=== PATIENT | female | born 1990 | race Caucasian/White ===

== ENCOUNTER 2016-09-07 06:02 | Inpatient (IN) | payer BC ==
[2016-09-07] VITALS (10 sets, daily range): BP systolic 105–136; BP diastolic 62–80; PULSE 81–100; RESP 16–20; TEMP 97.5–98.3; O2SAT 89–100
[~2016-09-07] VITALS: Ht 160 cm; Wt 101.8 kg
[~2016-09-07 06:02] MED LIST: ACET-2723 PO; DOCO100C3; GING550C4; PREN1TAB73 PO
[2016-09-07] MEDS ORDERED: LIDOCAINE 1% (10mg/ml) 2ml SDV ID PRN (06:45)
[2016-09-07] MEDS ORDERED: CALCIUM CARBONATE 500mg Chewable TAB PO PRN ×2 (06:45→13:15)
[2016-09-07] MEDS ORDERED: ACETAMINOPHEN 500 MG TABLET PO PRN ×2 (06:45→13:15)
[2016-09-07] MEDS ORDERED: MAG-AL + SIM LIQUID 30 ML UDC PO PRN (06:45)
[2016-09-07] MEDS: LR 1,000 ML IV PRN ×3 (06:55→10:22)
[2016-09-07 07:03] LABS: HCT - HEMATOCRIT 38.9 % (36-46); HGB - HEMOGLOBIN 13.6 GM/DL (12-16); MEAN CORPUSCULAR VOLUME 85.7 UM3 (80-100); MEAN PLATELET VOLUME 12.3 UM3 (9.4-12.4); RED BLOOD COUNT 4.54 M/MM3 (4.00-5.20); WBC - WHITE BLOOD COUNT 9.9 T/MM3 (4.5-11.0)
[2016-09-07] MEDS ORDERED: OXYTOCIN 30 UNIT in D5LR 500 ML PRN (07:15)
[2016-09-07] MEDS ORDERED: D5LR 1,000 ML IV PRN (07:15)
[2016-09-07] MEDS ORDERED: FOLI0.4T2 PO (07:58)
[2016-09-07] MEDS ORDERED: AMOX-351 PO (07:58)
--- NOTE | 2016-09-07 09:51 | ANESOB ---
Epidural/ Date/Time DATE: 09/07/16 TIME: 904 Preop Diagnosis Procedure: Labor Epidural Plan: Epidural Height: 5 ' 3.00 " Weight: 101.800 kg BMI: kg/m2 P:0 Medications & Allergies Inpatient Medications Current Medications Medications (Trade) Dose Ordered Sig/Gris Start Time Stop Time Status Last Admin Dose Admin Lidocaine HCl 0.2 mg 0.2 mg PRN PRN 09/07/16 06:45 Lactated Ringer's (Lactated Ringers) 1,000 ml @ 0 mls/hr Q0M PRN 09/07/16 06:38 09/07/16 08:55 0 MLS/HR Acetaminophen (Tylenol Extra Strength) 1-2 TABS = 500-1,000 MG Q4H PRN 09/07/16 06:45 Al Hydroxide/Mg Hydroxide (Maalox) 30 ml Q4H PRN 09/07/16 06:45 Calcium Carbonate 1-2 TABS Q2H PRN 09/07/16 06:45 Dextrose/Lactated Ringer's 1,000 ml @ 0 mls/hr Q0M PRN 09/07/16 07:15 09/07/16 07:11 0 MLS/HR Oxytocin/Dextrose/ Lactated Ringer's (Pitocin/D5lr) 503 ml @ 0 mls/hr Q0M PRN 09/07/16 07:15 09/07/16 07:10 0 MLS/HR Acetaminophen (Tylenol Extra Strength) 500 Mg Tablet, 1-2 TAB PO Q6H PRN for PAIN/FEVER, (Reported) Last Taken: on 09/06/16 Amoxicillin/Potassium Clav (Augmentin 875-125 Tablet) 1 Each Tablet, 1 TAB PO BID, (Reported) TAKE WITH MEALS Folic Acid (Folic Acid) 0.4 Mg Tablet, 1 TAB PO DAILY, (Reported) Last Taken: on 09/07/16 0500 Gali Root (Gali Root) 550 Mg Capsule, ( Reported) Last Taken: on 09/07/16 0500 Pnv95/Ferrous Fumarate/FA ( Tablet) 1 Each Tablet, 1 TAB PO DAILY, (Reported) Last Taken: on 09/07/16 0500 Discontinued Medications Docosahexanoic Acid (Dha) 100 Mg Capsule, (Reported) Last Taken: on 09/06/16 Coded Allergies: No Known Allergies (Unverified , 09/07/16) Medical/Surgical History Anesthesia PMH: Denies: *Diabetes, Anesthesia Reactions, Malignant Hyperthermia Smoking Status: Never smoker Does patient use chewing tobac: No Second Hand Exposure: No Substance Use Type: does not use Alcohol Intake: none Last Drink: hours (ago) (4) Anesthesia Adverse Reactions: FOUND none Family Hx of Anesthesia Advers: none Hx of Motion Sickness: No Complications During : No Pertinent Findings Laboratory Tests 09/07/16 06:48 Physical Exam Respiratory: Lungs clear Cardiovascular: Regular rate, rhythm Airway Assessment Mallampati Score: II TMD: 3 Fingerbreadths Neck Extension: Good Overall Assessment: May Be Diff Mask Vent., May Be Diff Intubation ASA: 2 Discussion Discussed risks/options/alternatives of anesthesia. Patient consents. Nursing pain assessment noted. Present for Discussion: Present: Parent, Spouse Attestation Statement Prior to the delivery of any anesthetic medication, I examined the patient, developed the plan, obtained the patient's consent and discussed the risk and benefits of the procedure with the patient/guardian. If the note happens to be signed after anesthesia start time, it is only due to providing efficient care of the patient and documenting at a time when the computer is available. TOBI PORTER CRNA Sep 07, 2016 09:51
[2016-09-07] MEDS ORDERED: ROPIVACAINE 1% 200 MG, SUFENTANIL 50 MCG in NORMAL SALINE 80 ML EPI PRN (10:00)
[2016-09-07] MEDS ORDERED: NALOXONE 0.4mg/ml INJECTION IV PRN (10:00)
[2016-09-07] MEDS ORDERED: ONDANSETRON 4mg/2ml INJECTION IV PRN ×2 (10:00→13:15)
[2016-09-07] MEDS ORDERED: DiphenhydrAMINE 50 MG/ML INJECTION IV PRN (10:00)
[2016-09-07] MEDS ORDERED: CEFAZOLIN 2 GM in D5W 50ml 2 GM in D5W 50 ML IV ONE ×2 (11:00)
[2016-09-07] MEDS ORDERED: CITRIC ACID/SODIUM CITRATE 30 ML PO ONE (11:00)
[2016-09-07] MEDS ORDERED: EPHEDRINE SULFATE 50mg/ml INJECTION ONE ×2 (11:00→11:12)
[2016-09-07] MEDS ORDERED: FAMOTIDINE 20mg IVPB 50 ML IV SCH (11:00)
[2016-09-07] MEDS ORDERED: LIDOCAINE 2%/EPI 1:200,000 20ml SDV ONE (11:12)
[2016-09-07] MEDS ORDERED: ONDANSETRON 4mg/2ml INJECTION ONE (11:13)
[2016-09-07 12:12] LABS: HCT - HEMATOCRIT 26.4 % (36-46); HGB - HEMOGLOBIN 8.7 GM/DL (12-16); MEAN PLATELET VOLUME 11.9 UM3 (9.4-12.4); WBC - WHITE BLOOD COUNT 8.2 T/MM3 (4.5-11.0)
[2016-09-07] MEDS ORDERED: FENTANYL 100mcg/2ml INJECTION ONE (12:44)
[2016-09-07] MEDS ORDERED: OXYTOCIN 30 UNIT in D5LR 500 ML IV SCH (13:10)
[2016-09-07] MEDS ORDERED: D5LR 1,000 ML IV SCH (13:10)
[2016-09-07] MEDS ORDERED: DiphenhydrAMINE 25 MG CAPSULE PO PRN (13:15)
[2016-09-07] MEDS ORDERED: MILK OF MAGNESIA 30 ML SUSP PO PRN (13:15)
[2016-09-07] MEDS ORDERED: HYDROCORTISONE 2.5% CREAM 30 GM RECTALLY PRN (13:15)
[2016-09-07] MEDS ORDERED: HYDROMORPHONE PCA 30 MG/30 ML VIAL IV PRN (13:15)
[2016-09-07 15:28] LABS: HCT - HEMATOCRIT 28.9 % (36-46); HGB - HEMOGLOBIN 9.9 GM/DL (12-16); MEAN CORPUSCULAR HGB 29.6 UUG (26-34); MEAN CORPUSCULAR HGB CONC(MCHC 34.3 GM/DL (31-37); MEAN CORPUSCULAR VOLUME 86.3 UM3 (80-100); MEAN PLATELET VOLUME 12.5 UM3 (9.4-12.4); RED BLOOD COUNT 3.35 M/MM3 (4.00-5.20); WBC - WHITE BLOOD COUNT 19.9 T/MM3 (4.5-11.0)
[2016-09-07] MEDS: IBUPROFEN 800 MG TABLET PO PRN ×2 (15:36→23:33)
[2016-09-07] MEDS: HYDROCODONE/APAP 5 mg/325 mg TABLET PO PRN (15:37)
[2016-09-07 15:41] LABS: LYMPHOCYTES # (MANUAL) 1.8 T/MM3 (1-4.8); MONOCYTES # (MANUAL) 1.2 T/MM3 (0-0.8); NEUTROPHILS #(MANUAL)-ABSOLUTE 14.9 T/MM3 (1.8-7.7); TOTAL CELLS COUNTED 100 %
[2016-09-07] MEDS: SIMETHICONE 80 MG CHEWABLE TABLET PO CHEW SCH ×2 (19:25→23:32)
[2016-09-07 19:44] LABS: MEAN CORPUSCULAR HGB CONC(MCHC 34.6 GM/DL (31-37); MEAN CORPUSCULAR VOLUME 86.7 UM3 (80-100); MEAN PLATELET VOLUME 12.5 UM3 (9.4-12.4)
[2016-09-07 19:55] LABS: BAND NEUTROPHILS # 2.2 T/MM3; MONOCYTES # (MANUAL) 0.4 T/MM3 (0-0.8); NEUTROPHILS #(MANUAL)-ABSOLUTE 16.2 T/MM3 (1.8-7.7); REACTIVE LYMPHOCYTES # 0.2 T/MM3 (0-0); TOTAL CELLS COUNTED 100 %
[2016-09-07 19:56] LABS: POIKILOCYTOSIS 1+
--- NOTE | 2016-09-07 20:00 | NUR ---
1900 REPEAT LAB: RN calls Dr Grullon with lab results of CBC with automatic Diff: Hgb 9.0/Hct 26.0/Plts 160/WBC 20. VSS. Pt rating incision pain 0-1 with ROLLING DOWN MACHINE OPERATOR. Pt consumed broth and jello w/o complications. Urine output for the last [address] Grullon orders for repeat lab in the AM
--- NOTE | 2016-09-07 23:32 | NUR ---
IV DC'D: RN flushes IV site in left AC, no complications. RN attempts to flush IV site in right AC, site occluded. IV site dc'd. IV site in right hand in use for Dilaudid FOOD PROCESSING CHEMIST, no complications.
[2016-09-08] VITALS (11 sets, daily range): BP systolic 110–132; BP diastolic 58–70; PULSE 82–110; RESP 18–20; TEMP 97.5–99; O2SAT 95–98
--- NOTE | 2016-09-08 01:51 | NUR ---
Chart Check 24 hour chart check completed
--- NOTE | 2016-09-08 02:10 | NUR ---
SHIFT SUMMARY: VSS, pt's pain controlled with Dilaudid PLANT CONTROL OPERATOR. PO Motrin and Mylicon provided as ordered. Fundus firm at 1 below umbilicus, scant lochia noted. Wound vac intact. Swelling noted in hands and feet bilaterally, pt states fingers hurt. Pt's coloring pale. Urinary vazquez cath to dependent drain, adequate urine output noted. Thigh high SCD's pumping bilaterally. Repeat lab work within normal limits and Dr Grullon updated on results, labs to be repeated in the AM. Pt consumed jello, broth and ice water w/o complications. RN provided pericare x2. RN and Ofe Mena RN assist pt with multiple times during shift. Benji in room and supportive. Pt skin to skin most of shift and bonding with babies. Babies in nursery to allow pt and to sleep.
[2016-09-08 06:04] LABS: HCT - HEMATOCRIT 25.1 % (36-46); HGB - HEMOGLOBIN 8.4 GM/DL (12-16); MEAN CORPUSCULAR HGB 29.3 UUG (26-34); MEAN CORPUSCULAR HGB CONC(MCHC 33.5 GM/DL (31-37); MEAN CORPUSCULAR VOLUME 87.5 UM3 (80-100); MEAN PLATELET VOLUME 12.3 UM3 (9.4-12.4); RED BLOOD COUNT 2.87 M/MM3 (4.00-5.20); WBC - WHITE BLOOD COUNT 18.4 T/MM3 (4.5-11.0)
[2016-09-08 06:46] LABS: ANISOCYTOSIS 1+; BAND NEUTROPHILS # 0.6 T/MM3; BASOPHILS # (MANUAL) 0.4 T/MM3 (0-0.2); LYMPHOCYTES # (MANUAL) 3.9 T/MM3 (1-4.8); MONOCYTES # (MANUAL) 0.7 T/MM3 (0-0.8); NEUTROPHILS #(MANUAL)-ABSOLUTE 12.9 T/MM3 (1.8-7.7); POIKILOCYTOSIS 1+; TOTAL CELLS COUNTED 100 %
--- NOTE | 2016-09-08 07:39 | PNPDOC ---
Prog Note 09/08/16 POD #1 BP stable, pulse slightly elevated On COREMAKER FLOOR so we will DC and go to oral meds. [facility] did not want her out of bed yesterday-I would like to increase activity and ambulation to see how she tolerates it. Hgb 8.4 6his am (admission was 13.6) so roughly 60% of admission value. Incision covered by vacuum dressing. q&a-krOWEN Ho MD Sep 08, 2016 07:38
[2016-09-08] MEDS: IBUPROFEN 800 MG TABLET PO PRN ×2 (09:11→18:05)
[2016-09-08] MEDS: DOCUSATE CALCIUM 240 MG CAPSULE PO SCH (09:11)
[2016-09-08] MEDS: HYDROCODONE/APAP 5 mg/325 mg TABLET PO PRN ×4 (09:12→22:03)
[2016-09-08] MEDS: SIMETHICONE 80 MG CHEWABLE TABLET PO CHEW SCH ×4 (09:30→22:02)
--- NOTE | 2016-09-08 10:13 | OPNOTEF ---
DATE OF PROCEDURE 09/07/2016 HISTORY Ms. Raymundo was admitted today for induction of labor at term with a twin gestation. Twins were diamniotic-dichorionic and were both in the vertex presentation. Twin B was known to have a two-vessel cord. During the course of induction early, Baby B had recurrent late variable decelerations. For this reason I recommended a section. We discussed the risks associated with this versus the risks of continuing labor. The patient asked appropriate questions and agreed that was in baby's best interest. PREOPERATIVE DIAGNOSIS Twin (di-di) term gestation, nonreassuring status. POSTOPERATIVE DIAGNOSIS Twin (di-di) term gestation, nonreassuring status - delivered, hemorrhage. PROCEDURE Primary low transverse section. SURGEON Liseth Grullon MD ASSISTANTS Jackson Crockett MD and Britta Mclaughlin MD ANESTHESIA Continuous epidural - Noel Brown CRNA EBL 4,200 ml DESCRIPTION OF PROCEDURE Ms. Raymundo was brought to the OR and placed on the OR table with left lateral displacement in the supine position. Regional analgesia was brought up to adequate surgical levels. A Linton catheter had previously been placed to dependent drain. The abdomen was prepped and draped in the usual sterile fashion. A Pfannenstiel skin incision was made with a sharp knife. This was carried down to fascia. Fascia was incised transversely. Fascia was then tented up. This was bluntly and sharply dissected free of rectus muscles. Rectus muscles were bluntly divided. Peritoneum was tented up and then sharply entered. This was extended vertically. The bladder blade was inserted. The bladder was noted to be well below the area of operation. Therefore a low transverse uterine incision was made with a sharp knife. Baby A was delivered in a vertex presentation. He was bulb suctioned on the abdomen. Cord was doubly clamped and cut. Baby was given to Dr. Wan' pediatric team for care. Within a moment, Baby B had descended down. We then entered the amniotic cavity. There was copious clear amniotic fluid. Baby was delivered in a vertex presentation and was then bulb suctioned. Cord was doubly clamped and cut and he was given to the pediatric team for care. First baby was a liveborn male with Apgars of 8/9, weighing 6 pounds 6.2 ounces. Second baby boy was a liveborn, 5 pound 15.4 ounce boy with Apgars of 7/8 . There was some difficulty was baby A's shoulders getting out but otherwise deliveries went without incident. There began to be very heavy bleeding almost immediately. The placenta was expressed intact. I later evaluated it and indeed there was diamniotic-dichorionic separation and two placentas. After removal of placentae, however, we began to address the bleeding. The myometrium was grasped with clamps. There was an extension into the left down toward the vagina. This tore into a small artery and apparently this tore in several different places. We spent quite a bit time carefully clamping and ligating this, making sure to not move too far laterally. This took quite a bit of time and accounted for the blood loss during the case. We were, however, able to secure this. There was also a bleeder on the posterior wall of the myometrium that was secured with a [id number] suture of 2-0 chromic. We used 3-0 chromic free ties and 2-0 chromic [id number] to secure the tears in the vessels. After securing this, we were able to reapproximate the laceration extension of the myometrial incision initially with a 2-0 chromic in a locking fashion. Once that was secured we then reinforced with a running locking O Monocryl to reapproximate the entire incision. The chromic was only used for a few short stitches to make sure the extension was secured. We then reinspected. There was still some bleeding on the anterior surface of the myometrium onto the bladder. This was secured with cautery and pressure. After holding pressure and cautery, we observed carefully for hemostasis. At this point it was finally under good control. We then reapproximated the bladder flap with a running nonlocking 2-0 Monocryl. We inspected carefully for hemostasis. It remained under good control. Uterus, tubes and ovaries were noted to be grossly normal. We removed blood clots from the pelvis and then returned the uterus to the abdominal cavity. We again inspected very carefully, making sure hemostasis remained under good control, as it did throughout the rest of the procedure. Peritoneum was then reapproximated with a running nonlocking 2-0 Vicryl. Fascia was reapproximated with a running nonlocking 0 Vicryl. Skin edges were reapproximated with a subcuticular style 3-0 undyed Vicryl. The wound was then dressed with a Prevena wound VAC dressing. Counts were correct postoperatively x 2. The urine remained clear and free flowing throughout the procedure. Ms. Raymundo was then transferred to recovery in stable condition. The babies are doing well. Since the surgery she has had continuing good vital signs and excellent urine output. Her hemoglobin intraoperatively was 8.8, has risen 9.9 and will be rechecked again later. JULIOCESARD
--- NOTE | 2016-09-08 10:27 | NUR ---
THIS WORKER MET WITH FAMILY AT THIS TIME. MOTHER IN BED ONE BABY, GRANDMOTHER IN CHAIR HOLDING OTHER BABY, FOB LAYING ON THE COUCH. AMANDAOS WORKER INTRODUCED SELF AND ROLE OF CASE MANAGEMENT. FAMILY STATED THEY HAD ALL SUPPLIES READY FOR BABY AT HOME. FOB STATED CAR SEATS ARE INSTALLED IN CAR. MOTHER IS A STAY AT HOME MOTHER AND FATHER PLANS ON RETURNING BACK TO WORK IN TWO WEEKS. FAMILY EXPRESSED THEY HAVE FAMILY SUPPORT AND FAMILY WILL BE VISITING AT THE HOSPITAL LATER TODAY. FAMILY EXPRESSED THEY HAVE GOOD FINANCIAL SUPPORT. FAMILY WAS GIVEN THIS WORKER'S CONTACT INFORMATION AND ENCOURAGED TO CALL WITH ANY QUESTIONS/NEEDS. Addendum: 09/08/16 at 1031 by AMANDEEP VAZQUEZ Amended: Links added.
--- NOTE | 2016-09-08 11:48 | ANESPO ---
Post-Op Note Date 09/08/16 Time: 11:47 Status Pt Participated in Evaluation: Pt participated in person Vital Signs Date Time Temp Pulse Resp B/P Pulse Ox O2 Delivery O2 Flow Rate FiO2 09/08/16 09:14 20 09/08/16 09:00 98.3 107 118/67 97 Room Air 09/07/16 16:19 2.00 Respiratory Function: Airway patent Cardiovascular Function: Regular pulse Mental Status: Alert/oriented Pain Level Intensity: 0 Hydration: Taking po fluids Complications during Recovery None apparent Follow-Up Instructions Instructions Per Surgeon Additional Information full motor and sensation. walked today without trouble TOBI PORTER CRNA Sep 08, 2016 11:48
--- NOTE | 2016-09-08 17:18 | PNPDOC ---
Prog Note 09/08/16 POD#1 Patient is resting comfortably. She has no complaints. She has ambulated twice thus far and denies orthostatic symptoms. She tolerated regular diet. Vazquez catheter has been removed early this afternoon but she has not voided yet. Pain is well controlled with current po pain med regimen. VS reviewed. No tachycardia but borderline - last pulse was 99. Normotensive. Afebrile. NAD Abd is soft, nontender, no rebound/guarding, Pfannenstiel incision was covered by Prevena wound vac - no surrounding erythema. Labs reviewed - no new labs since 544 today. Continue routine post-op care. Encourage as much ambulation as possible - needs SCDs while in bed. Recheck CBC in the AM. If does not void in 1-2 hours, will replace vazquez catheter and keep it in place for 24 hours. Questions solicited and answered. YOLY HUNTER MD Sep 08, 2016 17:17
--- NOTE | 2016-09-08 22:48 | NUR ---
Progress note: VSS. Pt. is up to BR frequently and performing pericare. Denies dizziness. Pt. is voiding adequate output. Dr. Mclaughlin ordered for I&O to continue to be monitored. Pt. is tolerating fluids and regular diet. Pt. is IVL. Small bleeding noted. Wound vac in place over abdominal incision. SCD's remain on when pt. is in bed. Ibuprofen 800 mg and [place] 5/325 mg given for pain management. Pain relief noted with pain medication. Pt. complained of constant pain in RLQ earlier this shift. Educated pt. on gas pain in abdomen and the importance of getting up/moving. Warmed rice bag and simethicone given. Pain controlled after interventions. FOB at bedside and very supportive. Pt. has repeat hgb ordered for 0400 in the am.
[2016-09-09] VITALS: BP 115/61; PULSE 106; RESP 20; TEMP 98.4; O2SAT 96
[2016-09-09] MEDS: IBUPROFEN 800 MG TABLET PO PRN ×2 (04:02→15:57)
[2016-09-09] MEDS: HYDROCODONE/APAP 5 mg/325 mg TABLET PO PRN ×4 (04:03→22:25)
[2016-09-09 04:40] VITALS: BP 132/77; PULSE 110; RESP 18; TEMP 98.1; O2SAT 96
[2016-09-09 05:36] LABS: HCT - HEMATOCRIT 21.1 % (36-46); HGB - HEMOGLOBIN 7.1 GM/DL (12-16); MEAN CORPUSCULAR HGB 29.7 UUG (26-34); MEAN CORPUSCULAR HGB CONC(MCHC 33.6 GM/DL (31-37); MEAN CORPUSCULAR VOLUME 88.3 UM3 (80-100); MEAN PLATELET VOLUME 11.8 UM3 (9.4-12.4); RED BLOOD COUNT 2.39 M/MM3 (4.00-5.20); WBC - WHITE BLOOD COUNT 15.6 T/MM3 (4.5-11.0)
[2016-09-09] MEDS ORDERED: LIDOCAINE VISCOUS 2% Oral Soln 15ml UD ONE (08:36)
[2016-09-09] MEDS ORDERED: NORMAL SALINE 500 ML IV SCH (09:04)
[2016-09-09] MEDS ORDERED: DiphenhydrAMINE 25 MG CAPSULE PO ONE (09:15)
[2016-09-09] MEDS ORDERED: ACETAMINOPHEN 500 MG TABLET PO ONE (09:15)
--- NOTE | 2016-09-09 09:37 | PNPDOC ---
Prog Note 09/09/16 POD#2 Patient is feeling very tired - reportedly falls asleep during conversations. Though she has tolerated regular diet, voided without difficulty, ambulated, she does not feel like she has very much energy. Denies shortness of breath and chest pain. Pain is well controlled. Minimal lochia on pad monitoring. Afebrile. Tachycardic from 100-110s. Normotensive. NAD but pale-appearing Manual pulse - 106 Abdomen is soft, nontender, no rebound/guarding, not distended, Prevena wound vac is in place over Pfannenstiel incision and there is no signs of infection Ana is dry Ext with mild edema, nontender, SCDs in place Item Value Date Time Hemoglobin 9.9 GM/DL L # 09/07/16 1507 Hemoglobin 9.0 GM/DL L 09/07/16 1924 Hemoglobin 8.4 GM/DL L 09/08/16 0545 Hemoglobin 7.1 GM/DL L # 09/09/16 0509 A: 26 year old now POD#2 s/p pLTCS for di/di twin delivery with NRFHTs complicated by 4.2L EBL due to left uterine artery extension and PP hemorrhage, currently hemodynamically unstable by symptoms, tachycardia. --will transfuse 2 units of pRBCs - patient and her were heavily counseled regarding the risks and benefits and patient agrees to proceed --recheck CBC tomorrow AM --routine post-op / care --ambulation, SCDs while in bed --questions solicited and answered YOLY HUNTER MD Sep 09, 2016 09:27
[2016-09-09] MEDS: DOCUSATE CALCIUM 240 MG CAPSULE PO SCH (10:58)
[2016-09-09] MEDS: SIMETHICONE 80 MG CHEWABLE TABLET PO CHEW SCH ×4 (10:59→22:25)
--- NOTE | 2016-09-09 11:00 | NUR ---
Epidural Epidural catheter removed without complications, tip intact, no S/S of infection noted. Area cleansed with alcohol, betadine and covered with a bandaid. Pt. educated about S/S of infection and to call doctor with concerns.
[2016-09-09 13:02] VITALS: BP 125/79; PULSE 102; RESP 18; TEMP 99.2; O2SAT 98
[2016-09-09 13:35] LABS: HGB - HEMOGLOBIN 8.4 GM/DL (12-16)
--- NOTE | 2016-09-09 15:13 | NUR ---
Shift Summary Pt VSS throughout this shift. Hgb 7.1 this am. Orders to transfuse 2 units. Transfusion started at 1013 this am. Pt has tolerated this transfusion well. IV infusing in R hand. Fundus firm. Mom has had a scant amount of rubra lochia. Up to BR and providing own cares. Has had good output this shift- see i&o. SCDs on. Pt has been in bed most of the day. Taking motrin and norco for pain. is going well. Incision is wnl with wound vac in place. 2nd unit of blood almost transfused. Bedside report given to Trina Dinh RN. She will assume pt care at this time.
[2016-09-09 15:50] VITALS: BP 128/79; PULSE 101; RESP 18; TEMP 99.3; O2SAT 98
[2016-09-09 17:53] LABS: HGB - HEMOGLOBIN 9.9 GM/DL (12-16)
[2016-09-09 19:33] VITALS: BP 123/74; PULSE 96; RESP 16; TEMP 98.7; O2SAT 97
[2016-09-09 22:16] VITALS: BP 118/72; PULSE 92; RESP 18; TEMP 97.9; O2SAT 97
[2016-09-10] MEDS: IBUPROFEN 800 MG TABLET PO PRN (00:02)
[2016-09-10] MEDS: HYDROCODONE/APAP 5 mg/325 mg TABLET PO PRN ×2 (00:03→14:28)
--- NOTE | 2016-09-10 04:12 | NUR ---
shift summary VSS, fundus firm, lochia scant. 2nd bag of PRBCs administered, labs redrawn. patient up in room, performing all cares for self. voiding without difficulty, tolerating PO food and fluids. motrin and norco administered for pain. patient reports feeling better since blood transfusion, showered last evening. no further changes in status noted.
--- NOTE | 2016-09-10 04:12 | NUR ---
Chart Check 24 hour chart check completed
[2016-09-10 05:32] LABS: HCT - HEMATOCRIT 27.6 % (36-46); HGB - HEMOGLOBIN 9.3 GM/DL (12-16); MEAN CORPUSCULAR HGB 29.5 UUG (26-34); MEAN CORPUSCULAR HGB CONC(MCHC 33.7 GM/DL (31-37); MEAN CORPUSCULAR VOLUME 87.6 UM3 (80-100); MEAN PLATELET VOLUME 11.8 UM3 (9.4-12.4); RED BLOOD COUNT 3.15 M/MM3 (4.00-5.20); WBC - WHITE BLOOD COUNT 17.6 T/MM3 (4.5-11.0)
[2016-09-10 08:10] VITALS: BP 119/76; PULSE 90; RESP 16; TEMP 97.7
[2016-09-10] MEDS: DOCUSATE CALCIUM 240 MG CAPSULE PO SCH (10:01)
--- NOTE | 2016-09-10 12:38 | PNPDOC ---
Prog Note 09/10/16 vss af doing much better & feeling much better since transfusion. ready for dc today vacuum still on incision f/u Wed instructions reviewed q&a OWEN MINOR MD Sep 10, 2016 12:38
[2016-09-10] MEDS ORDERED: IBUP-1547 PO (12:43)
[2016-09-10] MEDS ORDERED: HYDR-4246 PO (12:43)
== END 2016-09-10 14:30 | disposition home or self-care (01) | DRG 765 ==
LOC: MC 06:02
PROVIDERS: ADMIT Obstetrics & Gynecology; ATTEND Obstetrics & Gynecology
PROC: 0UQ90ZZ Repair Uterus, Open Approach (ICD-10-PCS; 2016-09-07)
PROC: 3E033VJ Introduction of Other Hormone into Peripheral Vein, Percutaneous Approach (ICD-10-PCS; 2016-09-07)
PROC: 10907ZC Drainage of Amniotic Fluid, Therapeutic from Products of Conception, Via Natural or Artificial Opening (ICD-10-PCS; 2016-09-07)
PROC: 04QY0ZZ Repair Lower Artery, Open Approach (ICD-10-PCS; 2016-09-07)
PROC: 10D00Z1 Extraction of Products of Conception, Low, Open Approach (ICD-10-PCS; principal; 2016-09-07 11:26)
PROC: 30233N1 Transfusion of Nonautologous Red Blood Cells into Peripheral Vein, Percutaneous Approach (ICD-10-PCS; 2016-09-09)
DX: O76 Abnormality in fetal heart rate and rhythm complicating labor and delivery (principal); O72.1 Other immediate postpartum hemorrhage; D62 Acute posthemorrhagic anemia; O67.8 Other intrapartum hemorrhage; O71.81 Laceration of uterus, not elsewhere classified; O71.89 Other specified obstetric trauma; O90.81 Anemia of the puerperium; O30.043 Twin pregnancy, dichorionic/diamniotic, third trimester; O69.89X2 Labor and delivery complicated by other cord complications, fetus 2; O99.89 Other specified diseases and conditions complicating pregnancy, childbirth and the puerperium; R00.0 Tachycardia, unspecified; O09.03 Supervision of pregnancy with history of infertility, third trimester; O99.284 Endocrine, nutritional and metabolic diseases complicating childbirth; E28.2 Polycystic ovarian syndrome; O99.344 Other mental disorders complicating childbirth; F32.9 Major depressive disorder, single episode, unspecified; Z3A.37 37 weeks gestation of pregnancy; Z37.2 Twins, both liveborn
CPT/HCPCS: 36415; 85018; 85025; 85027; 86850; 86900; 86901; 86920; 86922

== ENCOUNTER 2016-11-09 08:54 | Inpatient (IN) | payer BC ==
[~2016-11-09] VITALS: Ht 160 cm; Wt 86.8 kg
[~2016-11-09 08:54] MED LIST changes: -ACET-2723 PO; +AMOX-351 PO; -DOCO100C3; -GING550C4; +HYDR-4246 PO; +IBUP-1547 PO
--- OUTSIDE RECORDS SUMMARY | 2016-11-09 08:57 | XMS REPORT | Continuity of Care Document ---
Author Author [facility] Address Unknown Phone Unavailable Care Team Providers Care Refinery Operator Name Role Phone Liseth Grullon MD Primary Care Physician [phone] Insurance Providers Payer Name Policy Number Subscriber Name Relationship [facility] [id number] Donnell Gallagherew Shannon Advance Directives Directive Response Recorded Date/Time Advanced Directives Not applicable 11/08/16 7:47pm Chief Complaint and Reason for Visit Chief Complaint GI Complaint Reason for Visit Gastroenteritis Problems Active Problems Medical Problem Onset Date Status Conjunctivitis Unknown Acute Gastroenteritis Unknown Acute Unknown Acute Sinusitis, acute Unknown Acute UTI (urinary tract infection) ~01/28/2016 Acute Medications Current Home Medications Medication Dose Units Route Directions Days/Qty Instructions Start Date [ Control] Unknown Dose Daily 11/08/16 Past Home Medications Medication Directions Ordered Status Nitrofurantoin/Nitrofuran Mac 100 Mg Capsule, 100 Mg Oral Twice A Day Discontinued Pnv No.122/Iron/Folic Acid 1 Each Tablet, 1 Each Oral Daily 01/28/16 Discontinued Amoxicillin/Clavulanate Potassium 1 Each Tablet, 1 Each Oral Twice A Day With Meals 08/31/16 Discontinued Polymyxin/Trimethoprim (Polymyxin B/Trimethoprim Ophthalmic Solution) 10 Ml Soln, 1 Drop Opthalmic Four Times Daily 08/31/16 Discontinued Social History Query Response Start Date Stop Date Smoking Status Never smoker Hospital Discharge Instructions No hospital discharge instructions. Plan of Care Discharge Date 11/08/16 9:06pm Disposition 01 HOME OR SELF-CARE Condition at Discharge Stable Instructions/Education Provided Viral Gastroenteritis, Adult (DC) Gallstones (DC) Prescriptions See Medication Section Referrals Liseth Grullon MD - Additional Instructions/Education You most likely have viral gastroenteritis ( see information below). You should observe bedrest until you are feeling better. You may take [id number] nausea medication, like Dramamine or meclizine, and OTC diarrhea medication, like Imodium, as needed. You also may take the prescribed Zofran (ondansetron) 4 mg, which dissolves in your mouth rather than being swallowed, 1 tablet every 6 hours as needed for nausea and vomiting. Observe a clear room-temperature liquid diet today after your nausea improves, and then advance your diet tomorrow as tolerated to a BRAT-type diet (bananas, rice, applesauce, toast). If your vomiting continues more than 24 hours, or if you have vomiting with diarrhea more than 12 hours, you should return to the ER as you may become dehydrated to the point that you need intravenous fluids. If you develop significant or persistent abdominal pain and fever, blood in your vomit or stool, or become faint, return to the ER promtply for re-evaluation. Stool studies for listeria have been ordered. These symptoms tonight may represent a gallbladder attack. You were given strong pain and nausea medication and it should resolve tonight. Do not drive for 8 hours as this medication is sedating. If you don't improve over the next few days, or you continue to have gallbladder type symptoms with nausea, upper abdominal pain, bloating and belching that comes on within a few hours of eating fatty foods, then let your doctor know as you may need a gallbladder ultrasound or other testing. Some of your test results may not be complete prior to your leaving the Emergency Department. The Emergency Department is not authorized to give test results over the phone. Please contact the doctor's office listed in this packet of information for your final results. Follow up with your primary care physician or return to the Emergency Department for worsening or worrisome symptoms. * Emergency Department phone number: [phone], x [phone]* MEDICAL RECORD If you need copies of your X-rays, call [phone]. If you need copies of your medical record, including lab results, a signed authorization for release of records will be required. A telephone call for release of Health Information is not allowed. BILLING Billing can sometimes be confusing and frustrating. To help avoid confusion in the future, please take a moment to acquaint yourself with the billing parties for services. SERVICE [employer] Emergency Room Services [facility] Physician Services [facility] X-rays [facility] Patients will receive bills for services from the appropriate provider. If you have any questions about your [facility] bill, our staff will be happy to assist you. Please call [phone], and ask for the billing department. THANK YOU for choosing [facility] as your emergency care provider! Care Plan and Goals ~~Discharge Care Plan~~ Problem: Abdominal pain Goal: Decreased level of pain. Return to usual activities. Instructions: Take medication(s) as directed; follow up with primary care physician as directed; follow patient home care instructions. Functional Status No functional status results. Allergies, Adverse Reactions, Alerts No known allergies. Immunizations No immunization records. Vital Signs Acute Vital Signs Vital Response Date/Time Temperature (Fahrenheit) 97.5 11/08/2016 7:47pm Pulse 68 bpm 11/08/2016 9:06pm Respirations 16 11/08/2016 9:06pm Height 5 ft 3 in Weight 179 lb Body Mass Index 31.0 kg/m^2 Results No known relevant diagnostic tests, laboratory data and/or discharge summary. Procedures No known history of procedures. Encounters Encounter Location Arrival/Admit Date Discharge/Depart Date Attending Provider Departed Emergency Room [facility] 11/08/16 7:41pm 11/08/16 9:06pm OMAYRA STROUD DO Recent Diagnosis
--- OUTSIDE RECORDS SUMMARY | 2016-11-09 08:57 | XMS REPORT | Continuity of Care Document ---
Author Author [facility] Organization [facility] Address Unknown Phone Unavailable Support Name Relationship Address Phone PATTI TADEO MD Caregiver [address] [place] [address] [address] [place] [address] Unavailable PATTI TADEO MD Caregiver [address] [place] [address] [place] [address] Unavailable ANTWAN ROMERO Next Of Kin [address] [place] [address] Insurance Providers Guarantor Minesh Gallagher Address [address] [place] [address] Email [email or web address] Policy Number [id number] Subscriber's Name Baltazar Gallagher Relationship 01 Spouse Group Number [id number] Advance Directives Directive Response Recorded Date/Time Ordered Resuscitation Status Full Code 09/07/16 6:41am Resuscitation Documents on File No 09/07/16 8:01am DPOA for Healthcare Only No 09/07/16 8:01am Living Will No 09/07/16 8:01am Problems No problem information available. Medications Current Home Medications Medication Dose Units Route Directions Days Qty Instructions Start Date Amoxicillin/Potassium Clav (Augmentin 875-125 Tablet) 1 Each Tablet 1 Tab Oral Twice A Day TAKE WITH MEALS 09/07/16 Hydrocodone/Acetaminophen (Addison 5-325 Tablet) 5-325 Tablet 1-2 Tab Oral Every 4 Hours as needed for Pain 20 Tablet 09/10/16 Ibuprofen 800 Mg Tablet 800 Mg Oral Every 8 Hours as needed for Pain 1 Tablet 09/10/16 Pnv95/Ferrous Fumarate/Fa ( Tablet) 1 Each Tablet 1 Tab Oral Daily 08/22/16 Past Home Medications Medication Directions Ordered Status Acetaminophen (Tylenol Extra Strength) 500 Mg Tablet, 1-2 Tab Oral Every 6 Hours as needed for Pain/Fever 08/22/16 Discontinued Docosahexanoic Acid (Dha) 100 Mg Capsule, 08/22/16 Discontinued Folic Acid 0.4 Mg Tablet, 1 Tab Oral Daily 09/07/16 Discontinued Gali Root 550 Mg Capsule, 08/22/16 Discontinued Social History Social History Problem Response Recorded Date/Time Onset Date Status Reason for Hospitalization 09/10/2016 1:14pm Not Applicable Not Applicable Hx Substance Use No 09/07/2016 8:01am Not Applicable Not Applicable Has the pt used tobacco in the last 12 months No 09/07/2016 8:01am Not Applicable Not Applicable Query Response Start Date Stop Date Smoking Status Never smoker Hospital Discharge Instructions Instructions: Care Instructions: Reason for Hospitalization: I was in the hospital because (patient own words): to have babies Discharge Diet: regular Discharge Activity: per instruction sheet Follow Up Appointments: Call for or Mon appt. Pending Lab / Results: No Pending Lab Patient Instructions: see discharge teaching Wound/Incision Care: per instruction sheet, discussed vacuum Pain Scale Utilized to Educate Patient: 0-10 Pain Scale Pain Management/Treatment: per instruction sheet Expected Signs/Symptoms: per instruction sheet Notify Physician If: per instruction sheet During Business Hours:: Please call the physician's office at [phone] After Business Hours:: Please call [phone] and have the platen press operator apprentice page the physician. Condition at time of discharge: Good Plan of Care Discharge Date 09/10/16 2:30pm Disposition 01 DISCHARGED HOME, SELF-CARE Instructions/Education Provided MC Delivery Prescriptions See Medication Section Care Plan and Goals See Discharge Instructions Section Functional Status Query Response Date Recorded Mobility Status Ambulatory September 10, 2016 1:14pm Assistive Devices None September 10, 2016 1:14pm Activity Limitations None September 10, 2016 1:14pm Feeding Ability Independent September 10, 2016 1:14pm Toileting Ability Independent September 10, 2016 1:14pm Grooming Ability Independent September 10, 2016 1:14pm Dressing Ability Independent September 10, 2016 1:14pm Driving Ability Independent September 10, 2016 1:14pm Housework Ability Independent September 10, 2016 1:14pm Meal Preparation Ability Independent September 10, 2016 1:14pm Stair Climbing Ability Independent September 10, 2016 1:14pm Ability to complete ADL's impeded by No change September 10, 2016 1:14pm Cognitive/Perceptual Impairments None September 10, 2016 1:14pm Preferred Method of Learning Video/TV September 10, 2016 9:59am Allergies, Adverse Reactions, Alerts No known allergies. Immunizations Query Response on File Recorded Date/Time Influenza Vaccine Hx 04/11/16 09/07/16 8:01am Tdap Vaccine Hx 07/25/16 09/07/16 8:01am Vital Signs Acute Vital Signs Vital Response Date/Time Temperature (Fahrenheit) 97.7 deg F (96.8 - 99.1) 09/10/2016 8:10am Temperature (Calculated Celsius) 36.31199 degrees C (36.0 - 37.3) 09/10/2016 8:10am Pulse Rate (adult) 90 bpm (60 - 100) 09/10/2016 8:10am Respiratory Rate 16 breaths/min (10 - 20) 09/10/2016 8:10am O2 Sat by Pulse Oximetry 97 % (90 - 100) 09/09/2016 10:16pm Oxygen Delivery Method Room Air 09/10/2016 8:10am Oxygen Flow Rate 2.00 L/min 09/07/2016 4:19pm Blood Pressure 119/76 mm Hg 09/10/2016 8:10am Blood Pressure Source Automatic Cuff 09/10/2016 8:10am Height (Feet) 5 feet 09/07/2016 8:01am Height (Inches) 3.00 inches 09/07/2016 8:01am Weight (Kilograms) 101.800 kg 09/07/2016 8:01am Height 5 ft 3 in 08/22/2016 2:14pm Weight 224.43 lb 09/07/2016 8:01am Body Mass Index 39.0 kg/m^2 09/07/2016 8:01am Results Laboratory Results Test Name Result Units Flags Reference Collection Date/Time Result Date/ Time Comments White Blood Count 17.6 T/MM3 H 4.5-11.0 09/10/2016 4:43am 09/10/2016 5: 53am Red Blood Count 3.15 M/MM3 L 4.00-5.20 09/10/2016 4:43am 09/10/2016 5: 53am Hemoglobin 9.3 GM/DL L 12-16 09/10/2016 4:43am 09/10/2016 5:53am Hematocrit 27.6 % D L 36-46 09/10/2016 4:43am 09/10/2016 5:53am Mean Corpuscular Volume 87.6 UM3 80-100 09/10/2016 4:43am 09/10/2016 5: 53am Mean Corpuscular Hemoglobin 29.5 UUG 26-34 09/10/2016 4:43am 2016 5:53am Mean Corpuscular Hemoglobin Concent 33.7 GM/DL 31-37 09/10/2016 4:43am 09/10/2016 5:53am RDW Standard Deviation 38.5 FL 36.9-50.2 09/10/2016 4:43am 09/10/2016 5 :53am Platelet Count 197 T/MM3 D 130-400 09/10/2016 4:43am 09/10/2016 5:53am Mean Platelet Volume 11.8 UM3 9.4-12.4 09/10/2016 4:43am 09/10/2016 5: 53am Neutrophils % (Manual) 70.0 % H 33-66 09/08/2016 5:45am 09/08/2016 6: 46am Band Neutrophils % 3.0 % 0-6 09/08/2016 5:45am 09/08/2016 6:46am Lymphocytes % (Manual) 21.0 % L 23-45 09/08/2016 5:45am 09/08/2016 6: 46am Monocytes % (Manual) 4.0 % 0-9.0 09/08/2016 5:45am 09/08/2016 6:46am Basophils % (Manual) 2.0 % 0-2 09/08/2016 5:45am 09/08/2016 6:46am Reactive Lymphocytes % 1.0 % H 0-0 09/07/2016 7:24pm 09/07/2016 7:56pm Band Neutrophils # 0.6 T/MM3 09/08/2016 5:45am 09/08/2016 6:46am Absolute Neutrophils (Manual) 12.9 T/MM3 H 1.8-7.7 09/08/2016 5:45am 6:46am Lymphocytes # (Manual) 3.9 T/MM3 1-4.8 09/08/2016 5:45am 09/08/2016 6: 46am Monocytes # (Manual) 0.7 T/MM3 0-0.8 09/08/2016 5:45am 09/08/2016 6: 46am Basophils # (Manual) 0.4 T/MM3 H 0-0.2 09/08/2016 5:45am 09/08/2016 6: 46am Reactive Lymphocytes # 0.2 T/MM3 H 0-0 09/07/2016 7:24pm 09/07/2016 7: 56pm Red Cell Morphology Comment ABNORMAL 09/08/2016 5:45am 09/08/2016 6 :46am Anisocytosis 1+ 09/08/2016 5:45am 09/08/2016 6:46am Poikilocytosis 1+ 09/08/2016 5:45am 09/08/2016 6:46am Procedures Procedure Status Date Provider(s) Extremity study Completed 06/16/16 section Completed 09/07/16 PATTI TADEO MD Encounters Encounter Location Arrival/Admit Date Discharge/Depart Date Attending Provider Discharged Inpatient [facility] 09/07/16 6:02am 09/10/16 2:30pm PATTI TADEO MD [facility] 06/16/16 2:56pm PATTI TADEO MD
[2016-11-09] MEDS ORDERED: ACET-62 PO (09:43)
[2016-11-09] MEDS ORDERED: ONDA4TAB4 PO (09:43)
[2016-11-09] MEDS ORDERED: NO ROUTINE MEDS (09:44)
--- NOTE | 2016-11-09 09:55 | NUR ---
PHYSICIAN VISIT DR. BROOKS IN TO SEE PATIENT.
--- NOTE | 2016-11-09 10:03 | ERPDOC ---
Departure Disposition Decision Date: November 09, 2016 Disposition Decision Time: 12:35 Disposition: 01 DISCHARGED HOME, SELF-CARE Impression Impression Impression: Primary Impression: Cholelithiasis Additional Impression: Cholelithiasis and acute cholecystitis with obstruction Severity: Severe Condition: Improved Seen By: Physician only Problems/Meds/Labs Reviewed?: Yes Medications reviewed and manag: Yes Follow up care ordered?: Yes Mental Status: Alert, Oriented HPI - Abdominal Pain General Chief Complaint: Abdominal Pain Stated Complaint: CHEST PAIN, UPPER ABD PAIN Time Seen by Provider: 10:00 HPI - Abdominal Pain Initial Comments 26-year-old female presents with abdominal pain greater than 1 week. Pain has been intermittent, however now if she tries to eat she throws up. His morning she threw up even without eating. She did have twins 2 months ago, had some infection/cellulitis in her incision and had to use a couple rounds of antibiotics to treat it, but it resolved. She was seen in the [place] ER yesterday and would like a more thorough workup as they did not have ultrasound available. She's not had fevers. She has had fairly steady vaginal drainage since the . No shortness of breath or upper chest pain. Allergies: Coded Allergies: No Known Allergies (Unverified , 11/09/16) Past History Past Medical History PMH Comments Infected incision Surgical History Reproductive/: Surgical History Comments Deliver twins 2 months ago. Social History Does patient use chewing tobac: No Second Hand Exposure: No Substance Use Type: does not use Alcohol Intake: none Last Drink: hours (ago) Review of Systems GI Upper Abdomen: see HPI Lower Abdomen: see HPI General: see HPI Female: see HPI : see HPI All other Systems All Other Systems: Reviewed and Negative Physical Exam General General Nourishment: well nourished, well developed, appears stated age Distress Description Patient is quite frustrated and discomfort. Vitals and Pain First Documented Vital Signs Date Time Temp Pulse Resp B/P Pulse Ox O2 Delivery O2 Flow Rate FiO2 11/09/16 08:58 97.9 54 16 119/70 97 Room Air Weight: Kilograms: 79.700 Height (feet): 5 Height (inches): 3.00 Triage Pain Scale: Normal Exams: Head: Normocephalic w/o trauma Chest/Resp: Clear all marte, with good airflow, and symmetry bilaterally CV: Regular rate and rhythm, without murmur or gallop, Pulses 2+ all extremities, capillary refill, <2 seconds all ext., no pedal edema noted Neurologic: Patient is alert, and oriented, cranial nerves, motor/sensory/ cerebellar, exams w/o gross deficits, to observation Psychiatric: Patient exhibits, appropriate attention, emotion and affect Abdomen (brief) Abdominal Brief: FOUND: bowel normo active x4, soft Comments Patient has minimal to moderate tenderness right and left upper quadrant. Differential Diagnoses Considering: Bowel Obstruction, Cholecystitis, Gastroenteritis, GI Bleed, Hernia, Ileus, Pyelonephritis, Ulcerative Colitis, UTI Progress Results/Orders Orders Procedure Category Date Status Time Iv Lock (Ed Only) EDM 11/09/16 Transmitted 10:05 Cbc W/Auto LAB 11/09/16 Complete Diff-Reflex Manual 10:05 Cmp - Comprehensive LAB 11/09/16 Complete Metabolic 10:05 Lipase LAB 11/09/16 Complete 10:05 LAB 11/09/16 Complete Qualitative, Urine 10:05 Normal Saline (Normal PHA 11/09/16 Complete Saline Iv) 10:05 Ondansetron Inj PHA 11/09/16 Complete (Zofran) 10:15 UA, LAB 11/09/16 Complete Dip&Micro(Complete) & 10:29 Ct Abd/Pelvis CT 11/09/16 Resulted W/Contrast Only Us Gallbladder US 11/09/16 Resulted 10:05 Iohexol (Omnipaque) PHA 11/09/16 Complete 11:18 Normal Saline (Ns) PHA 11/09/16 Complete 11:18 Saline Flush (Iv PHA 11/09/16 Complete Flush) 11:18 Place In Facility: ED ADM 11/09/16 Transmitted Activity As Tolerated JOHNNA 11/09/16 Transmitted 12:27 Clear Liquid Diet DIET 11/09/16 Transmitted Lunch Npo: Nothing By Mouth DIET 11/09/16 Transmitted Dinner Normal Saline (Normal PHA 11/09/16 Transmitted Saline Iv) 12:27 Oxycodone/Apap /325 PHA 11/09/16 Transmitted (Percocet 5/325) 12:30 Hydromorphone PHA 11/09/16 Transmitted (Dilaudid) 12:30 Ondansetron Inj PHA 11/09/16 Transmitted (Zofran) 12:30 Promethazine PHA 11/09/16 Transmitted (Phenergan) 12:30 Measure Vital Signs JOHNNA 11/09/16 Transmitted 12:27 Compression Type Scd/ JOHNNA 11/09/16 Transmitted Himanshu Garciae 12:27 Ertapenem (Invanz) PHA 11/09/16 Transmitted 12:30 Lab Results Laboratory Tests Test 11/09/16 10:29 White Blood Count 6.3T/MM3 Red Blood Count 4.92M/MM3 Hemoglobin 13.3GM/DL Hematocrit 39.8% Mean Corpuscular Volume 80.9UM3 Mean Corpuscular Hemoglobin 27.0UUG Mean Corpuscular Hemoglobin Concent 33.4GM/DL RDW Standard Deviation 34.1FL Platelet Count 206T/MM3 Mean Platelet Volume 12.4UM3 Immature Granulocyte % (Auto) 0.2% Neutrophils (%) (Auto) 67.3% Lymphocytes (%) (Auto) 23.5% Monocytes (%) (Auto) 7.7% Eosinophils (%) (Auto) 1.1% Basophils (%) (Auto) 0.2% Absolute Immature Granulocyte (auto 0.01T/MM3 Absolute Neutrophils (auto) 4.2T/MM3 Absolute Lymphocytes (auto) 1.5T/MM3 Absolute Monocytes (auto) 0.5T/MM3 Absolute Eosinophils (auto) 0.1T/MM3 Absolute Basophils (auto) 0.0T/MM3 Urine Collection Type Cleancatch-midstream Urine Color Yellow Urine Turbidity Clear Urine pH 6.0 Urine Specific [place] 1.010 Urine Protein Trace Urine Glucose (UA) Negative Urine Ketones Negative Urine Blood 2+ Urine Nitrite Negative Urine Bilirubin 2+ Urine Urobilinogen 1.0EU/DL Urine Leukocyte Esterase Negative Urine RBC 1-3/HPF Urine WBC 0-1/HPF Urine Squamous Epithelial Cells 10-20 Urine Bacteria Trace Urine Culture Indicated Cult not indicated Urine Test Negative Turbidity < 20 Sodium Level 149MEQ/L Potassium Level 3.8MEQ/L Chloride Level 105MEQ/L Carbon Dioxide Level 28MEQ/L Anion Gap 16MEQ/L Blood Urea Nitrogen 12.0MG/DL Creatinine 0.8MG/DL Glomerular Filtration Rate Calc 88 BUN/Creatinine Ratio 15RATIO Glucose Level 100MG/DL Calculated Osmolality 286MOSM/KG Calcium Level 9.8MG/DL Total Bilirubin 1.60MG/DL Icterus Index < 2 Aspartate Amino Transf (AST/SGOT) 690U/L Alanine Aminotransferase (ALT/SGPT) 547U/L Alkaline Phosphatase 192U/L Total Protein 7.9G/DL Albumin 4.5G/DL Globulin 3.4G/DL Albumin/Globulin Ratio 1.3RATIO Lipase 175U/L Chemistry Specimen Hemolysis 18 Medications Current ED Medications Sodium Chloride (Normal Saline IV) 1,000 ml @ 1,000 mls/hr Q1H ONCE IV Last administered on 11/09/16 10:22; Start 11/09/16 at 10:05; Stop 11/09/16 at 11:04 ; Status DC Ondansetron HCl (Zofran) 4 mg O ONCE IV Last administered on 11/09/16 10:22; Start 11/09/16 at 10:15; Stop 11/09/16 at 10:16; Status DC Iohexol 1 bottle 1 bottle STK-MED ONCE .ROUTE ; Start 11/09/16 at 11:18; Stop at 11:19; Status DC Sodium Chloride (NS) 100 ml @ As Directed STK-MED ONCE .ROUTE ; Start 11/09/16 at 11:18; Stop 11/09/16 at 11:19; Status DC Sodium Chloride (Iv Flush) 10 ml STK-MED ONCE .ROUTE ; Start 11/09/16 at 11:18; Stop 11/09/16 at 11:19; Status DC Progress Progress White count is normal, however ALT and AST as well as alkaline phosphatase are elevated. Total bili is 1.6. Renal function is appropriate. Ultrasound of gallbladder shows stones. CT of abdomen is essentially negative. Patient has consistent pain and nausea/vomiting over the last 24 hours despite not eating. I spoke with Dr. Chaidez, patient will be admitted outpatient surgical with cholelithiasis, suspect acute cholecystitis. Invanz 1 g IV now. Continue IV fluids, Zofran and Phenergan for nausea, Dilaudid and Percocet as needed for pain. Patient will be nothing by mouth from midnight and expectation of surgical intervention tomorrow. Dr. Chaidez evaluate the patient this evening. ARIELLA BROOKS MD November 09, 2016 10:03
[2016-11-09] MEDS ORDERED: NORMAL SALINE 1,000 ML IV ONE (10:05)
[2016-11-09] MEDS ORDERED: ONDANSETRON 4mg/2ml INJECTION IV ONE (10:15)
--- NOTE | 2016-11-09 10:15 | NUR ---
ULTRASOUND ULTRASOUND AT BEDSIDE TO PERFORM US OF GALLBLADDER.
[2016-11-09 10:35] LABS: BASOPHILS % (AUTO) 0.2 % (0-2); EOSINOPHILS # (AUTO) 0.1 T/MM3 (0-0.5); EOSINOPHILS % (AUTO) 1.1 % (0-4); HCT - HEMATOCRIT 39.8 % (36-46); HGB - HEMOGLOBIN 13.3 GM/DL (12-16); IMMATURE GRANULOCYTE # (AUTO) 0.01 T/MM3 (0.00-0.03); IMMATURE GRANULOCYTE % (AUTO) 0.2 % (0.0-0.5); LYMPHOCYTES # (AUTO) 1.5 T/MM3 (1-4.8); LYMPHOCYTES % (AUTO) 23.5 % (23-45); MEAN CORPUSCULAR HGB CONC(MCHC 33.4 GM/DL (31-37); MEAN CORPUSCULAR VOLUME 80.9 UM3 (80-100); MEAN PLATELET VOLUME 12.4 UM3 (9.4-12.4); MONOCYTES # (AUTO) 0.5 T/MM3 (0-0.8); MONOCYTES % (AUTO) 7.7 % (0-9.0); NEUTROPHILS #(AUTO)-ABSOLUTE 4.2 T/MM3 (1.8-7.7); NEUTROPHILS % (AUTO) 67.3 % (33-66); RED BLOOD COUNT 4.92 M/MM3 (4.00-5.20); WBC - WHITE BLOOD COUNT 6.3 T/MM3 (4.5-11.0)
[2016-11-09 10:44] LABS: BLOOD, URINE 2+ (NEGATIVE); COLOR,URINE YELLOW (YELLOW); LEUKOCYTE ESTERASE ,URINE NEGATIVE (NEGATIVE); NITRITE,URINE NEGATIVE (NEGATIVE)
[2016-11-09 10:45] LABS: ALBUMIN 4.5 G/DL (3.5-5.0); ALBUMIN/GLOBULIN RATIO 1.3 RATIO (1.1-2.2); ALKALINE PHOSPHATASE 192 U/L (38-126); ALT (SGPT) 547 U/L (9-52); ANION GAP 16 MEQ/L (5-15); AST (SGOT) 690 U/L (14-36); BUN/CREATININE RATIO 15 RATIO (6-26); CALCIUM 9.8 MG/DL (8.4-10.2); CHLORIDE 105 MEQ/L (98-107); CO2 - CARBON DIOXIDE 28 MEQ/L (22-30); CREATININE 0.8 MG/DL (0.7-1.2); GLOMERULAR FILTRATION RATE 88; GLUCOSE 100 MG/DL (65-110); LIPASE 175 U/L (23-300); POTASSIUM 3.8 MEQ/L (3.6-5); SODIUM 149 MEQ/L (134-144); TOTAL PROTEIN 7.9 G/DL (6.3-8.2)
[2016-11-09 10:55] LABS: WBC,URINE 0-1 /HPF (0-5)
[2016-11-09 10:56] LABS: BACTERIA,URINE TRACE (NEGATIVE)
[2016-11-09] MEDS ORDERED: NORMAL SALINE 100 ML ONE (11:18)
[2016-11-09] MEDS ORDERED: SALINE FLUSH 10ml SYRINGE ONE (11:18)
[2016-11-09] MEDS ORDERED: IOHEXOL 300 MG/ML 100ml INJECTION ONE (11:18)
--- NOTE | 2016-11-09 11:19 | DI ---
Indication: ITS.REASON: right upper quadrant pain, vomiting PROCEDURE: US ABDOMEN LIMITED: Encounter: Initial Comparison: None Technique: Grayscale and color Doppler sonographic imaging of the right upper quadrant abdomen was performed. Findings: Hepatic parenchyma is homogeneous without evidence for focal mass. The gallbladder shows a few small mobile shadowing gallstones. No gallbladder wall thickening or pericholecystic fluid. Sonographic De La Fuente's sign was negative. There is borderline intra and extrahepatic bile duct dilatation. Common duct measures up to 4 mm in diameter. Visualized portions of the head and body of the pancreas are unremarkable. Both kidneys are present without collecting system dilatation. The right measures 12 cm in length. No free fluid. Impression: Cholelithiasis with borderline common duct enlargement raises concern for possible choledocholithiasis. Contrast-enhanced CT of the abdomen and pelvis is suggested given the patient's liver function test abnormalities. .
--- NOTE | 2016-11-09 11:30 | NUR ---
CT TRANSPORTED TO CT VIA STRETCHER PER MOLDED GOODS INSPECTOR TRIMMER.
--- NOTE | 2016-11-09 11:43 | NUR ---
RETURNED RETURNED FROM CT.
--- NOTE | 2016-11-09 12:03 | DI ---
Indication: ITS.REASON: elevated lft PROCEDURE: CT ABD/PELVIS W/CONTRAST ONLY: Encounter: Initial Comparison: Gallbladder ultrasound from today Technique: Axial CT images were performed through the abdomen and pelvis after the administration of intravenous contrast. Coronal and sagittal two-dimensional reformats. Automated Exposure Control and Iterative Reconstruction dose reducing techniques were utilized. Contrast: Omnipaque 300 100 mL Findings: The lung bases are clear. Liver shows a couple low-attenuation subcentimeter foci which are too small to definitively characterize. No enhancing liver mass or bile duct dilatation visible by CT. Gallstones are only seen on today's ultrasound. No gallbladder wall thickening or pericholecystic inflammation. The extrahepatic common duct appears normal in caliber. No obvious stone within it. The spleen, pancreas and adrenal glands are within normal limits. The kidneys show a tiny probable cyst in the interpolar left kidney but are otherwise normal. No abdominal or pelvic lymphadenopathy. There is some residual subcutaneous induration from the patient's reportedly recent section. Uterus shows no acute abnormality or abnormal enhancement. The ovaries appear normal for age. No free fluid. Bladder is normal. No evidence of a bowel obstruction. The appendix is normal. This is in a retrocecal location. Bone windows are within normal limits. Impression: No acute disease process seen by CT. Cholelithiasis was noted on today's ultrasound. No CT evidence of acute biliary obstruction. .
[2016-11-09] MEDS ORDERED: HYDROMORPHONE 2mg/ml INJECTION IV PRN (12:30)
[2016-11-09] MEDS ORDERED: ERTAPENEM 1 G in NORMAL SALINE 100 ML IV ONE (12:30)
[2016-11-09] MEDS ORDERED: PROMETHAZINE 25 MG INJECTION IV PRN (12:30)
[2016-11-09] MEDS ORDERED: ONDANSETRON 4mg/2ml INJECTION IV PRN (12:30)
--- NOTE | 2016-11-09 12:54 | HPPDOC ---
HPI - Adult Date DATE: 11/09/16 TIME: 12:50 General History of Present Illness Abdominal pain Past Medical History Past Medical History no chronic illness Surgical History Patient's Surgical History: 2017 - twins Current Medications Home Meds Reported Medications [No Routine Meds] No Conflict Check 11/09/16 Acetaminophen (Acetaminophen) 500 Mg Tablet, 1000 MG PO Q8H Y for PAIN 11/09/16 Ondansetron HCl (Zofran) 4 Mg Tablet, 4 MG PO Q6H Y for NAUSEA &/OR VOMITING 11/09/16 Allergies: Coded Allergies: No Known Allergies (Unverified , 11/09/16) Family History Family History: Father - kidney disease Social History Smoking Status: Unknown if ever smoked Does patient use chewing tobac: No Second Hand Exposure: No Substance Use Type: does not use Alcohol Intake: none Last Drink: hours (ago) GS Review of Systems Gastrointestional REPORTS other (see HPI) 10-point Review of Systems negative except HPI GS Physical Exam Vital Signs Date Time Temp Pulse Resp B/P Pulse Ox O2 Delivery O2 Flow Rate FiO2 11/09/16 08:58 97.9 54 16 119/70 97 Room Air Height (Feet): 5 Height (Inches): 3.00 Weight (Kilograms): 79.700 BMI 31.0 Laboratory Laboratory Tests 11/09/16 10:29 Laboratory Tests 11/09/16 10:29 GS Assessment & Plan Code Status Full Code Hospital Course Summary Disclaimer The visit summary below is not to be considered part of the above Progress Note. JESSIE WOODSON POWERSAW SUPERVISOR November 09, 2016 12:54
--- NOTE | 2016-11-09 13:05 | NUR ---
ADMISSION CALLED [facility] CHARGE FOR BED ASSIGNMENT. PATIENT TO GO TO ROOM 109. FRANCESCA CONDE TO TAKE REPORT AT EXTENSION [id number].
--- NOTE | 2016-11-09 13:25 | NUR ---
REPORT REPORT CALLED TO FRANCESCA CONDE, SURGICAL UNIT.
--- NOTE | 2016-11-09 13:34 | NUR ---
ADMISSION PATIENT ADMITTED TO ROOM 109 AT THIS TIME VIA CART AND ER STAFF. PATIENT ABLE TO AMBULATE FROM BED OUTSIDE OF ROOM TO SURGICAL UNIT BED. FAMILY AT BEDSIDE. A/OX3. ROOM AIR. VITAL SIGNS STABLE. DENIES PAIN, N/V, CHEST PAIN, AND SOA AT THIS TIME. BED IN THE LOWEST POSITION, CALL LIGHT WITHIN REACH, SIDE RAILS UPX2, AND BED ALARM ON. WILL CONTINUE TO MONITOR.
[2016-11-09 13:36] VITALS: Ht 160 cm; Wt 86.8 kg
[2016-11-09 13:43] VITALS: BP 120/71; PULSE 55; RESP 18; TEMP 97.3; O2SAT 98
[2016-11-09] MEDS: NORMAL SALINE 1,000 ML IV SCH ×2 (13:50→23:30)
[2016-11-09 16:42] VITALS: BP 118/74; PULSE 52; RESP 16; TEMP 96; O2SAT 96
--- NOTE | 2016-11-09 18:25 | HPF ---
FINDINGS Mrs. Raymundo is a 26-year-old female whom I was asked to see through the emergency room earlier today as a result of her history for abdominal pain, nausea, vomiting, and the finding of cholelithiasis upon ultrasonography. Upon questioning the patient, she states that she has not felt very well over the course of last two weeks. She did deliver twins about two months ago here at [facility]. Patient states that yesterday she developed severe pain involving her upper abdomen. She described it as a pain that felt as if there was a "band that went around her belly" involving her upper abdomen. Pain was quite severe in nature. Patient states that she presented to [facility] emergency room last evening and they had "given her some pain shots and send her home." Patient states that she ate a couple of crackers last evening and this morning and developed recurrent severe abdominal pain with nausea and vomiting. She then represented to our emergency room facility earlier this morning. Patient states that this evening she is feeling better. PAST MEDICAL HISTORY, PAST SURGICAL HISTORY, MEDICATIONS, ALLERGIES, SOCIAL HISTORY, FAMILY HISTORY Performed by my nurse practitioner, Rivera Pinto APRN PHYSICAL EXAMINATION GENERAL: Mrs. Raymundo is a 26-year-old female who this evening upon entering the room did not appear to be in acute distress. VITAL SIGNS: Temperature 96.0, pulse 52, respirations 16, blood pressure 118/74, SAO2 96% on room air. HEENT: Normocephalic. Pupils are equally round and react to light and accommodation. NECK: Supple without lymphadenopathy. CHEST: Clear to auscultation bilaterally. HEART: Regular rate and rhythm. Normal S1 and S2 without gallops, murmurs or clicks. ABDOMEN: Palpation of the abdomen this evening surprisingly revealed it to be soft and completely nontender. She did not have any evidence for guarding or rebound tenderness. No evidence of hepatomegaly or other abnormal masses. EXTREMITIES: Without clubbing, cyanosis, or edema. NEURO: Cranial nerves II-XII grossly intact. Patient is without focal motor or sensory deficits. LABORATORY/RADIOGRAPHIC EVALUATION The patient had a CBC obtained through the ER earlier today that was unremarkable. CMP was obtained and her liver function tests were found to be elevated with a total bilirubin 1.6, AST of 690, ALT of 547 and alkaline phosphatase of 192. The patient did have a gallbladder ultrasound earlier today that revealed evidence for cholelithiasis. It was felt that there was borderline common bile duct enlargement raising the possibility of choledocholithiasis. CT scan was obtained for further evaluation that did not reveal evidence for biliary dilatation/choledocholithiasis. ASSESSMENT 26-year-old female with probable symptomatic cholelithiasis. PLAN When I spoke with the ER doctor earlier this morning/afternoon I had recommended that we go ahead and give the patient antibiotics empirically for possible cholecystitis. The patient was given Invanz 1 g intravenously. As a result of the above indications it was my recommendation that we should proceed with surgical intervention/robotic-assisted laparoscopic cholecystectomy. I did go ahead this evening and discuss with the patient, her and her parents who were in the room what a robotic-assisted laparoscopic cholecystectomy would entail with possible intraoperative cholangiogram. Discussed potential risks associated with this procedure which included but was not inclusive of bleeding, infection, potential conversion to open procedure, potential injury to adjacent structures, especially the common bile duct. Patient and family understood and wished to proceed as stated above. Will repeat her liver function tests and lab work tomorrow a.mKiet CORONA
[2016-11-09 20:06] VITALS: PULSE 52; RESP 16
--- NOTE | 2016-11-09 20:53 | NUR ---
CONSENT THIS RN DISCUSSED THE SURGICAL PROCEDURE WITH THE PT AND FAMILY. PT STATES THAT DR VINES HAS EXPLAINED IN DETAIL THE PROCEDURE AND POSSIBILITIES DURING THE SURGERY. PT AGREED TO A BLOOD TRANSFUSION IF IT BECOMES NECESSARY. CONSENT SIGNED AND ON FRONT OF PATIENTS CHART.
[2016-11-09 23:58] VITALS: BP 108/65; PULSE 52; RESP 20; TEMP 97.9; O2SAT 97
[2016-11-10] VITALS (27 sets, daily range): BP systolic 88–126; BP diastolic 50–81; PULSE 51–81; RESP 13–22; TEMP 97.8–98.2; O2SAT 90–100
--- NOTE | 2016-11-10 00:01 | NUR ---
Drinks chicken broth and has jello prior to midnight. No nausea. Pain under control. at bedside. Voids dark yellow urine. NS infuses at 100 cc/hr. at bedside.
[2016-11-10 04:55] LABS: BASOPHILS % (AUTO) 0.6 % (0-2); EOSINOPHILS # (AUTO) 0.2 T/MM3 (0-0.5); EOSINOPHILS % (AUTO) 2.5 % (0-4); HCT - HEMATOCRIT 34.2 % (36-46); HGB - HEMOGLOBIN 11.3 GM/DL (12-16); LYMPHOCYTES # (AUTO) 2.2 T/MM3 (1-4.8); LYMPHOCYTES % (AUTO) 31.1 % (23-45); MEAN CORPUSCULAR HGB 26.6 UUG (26-34); MEAN CORPUSCULAR VOLUME 80.5 UM3 (80-100); MONOCYTES # (AUTO) 0.6 T/MM3 (0-0.8); MONOCYTES % (AUTO) 7.9 % (0-9.0); NEUTROPHILS #(AUTO)-ABSOLUTE 4.1 T/MM3 (1.8-7.7); NEUTROPHILS % (AUTO) 57.9 % (33-66); RED BLOOD COUNT 4.25 M/MM3 (4.00-5.20); WBC - WHITE BLOOD COUNT 7.1 T/MM3 (4.5-11.0)
[2016-11-10 05:47] LABS: ALBUMIN 3.4 G/DL (3.5-5.0); ALBUMIN/GLOBULIN RATIO 1.4 RATIO (1.1-2.2); ALKALINE PHOSPHATASE 195 U/L (38-126); ALT (SGPT) 506 U/L (9-52); ANION GAP 10 MEQ/L (5-15); AST (SGOT) 378 U/L (14-36); BUN/CREATININE RATIO 9 RATIO (6-26); CALCIUM 8.6 MG/DL (8.4-10.2); CHLORIDE 108 MEQ/L (98-107); CO2 - CARBON DIOXIDE 26 MEQ/L (22-30); CREATININE 0.8 MG/DL (0.7-1.2); GLOMERULAR FILTRATION RATE 88; GLUCOSE 96 MG/DL (65-110); POTASSIUM 3.7 MEQ/L (3.6-5); SODIUM 144 MEQ/L (134-144); TOTAL PROTEIN 5.9 G/DL (6.3-8.2)
--- NOTE | 2016-11-10 08:03 | PNSURG ---
Subjective DATE: 11/10/16 TIME: 07:56 Interval History RUQ pain has subsided. Denies nausea. She is without questions this morning. Bilirubin has returned to normal, AST/ALT are trending down. Plan Robotic lap jasen late morning or early afternoon. Objective Vital Signs Date Time Temp Pulse Resp B/P Pulse Ox O2 Delivery O2 Flow Rate FiO2 11/10/16 07:51 98.1 56 15 117/63 98 Room Air Height (Feet): 5 Height (Inches): 3.00 Weight (Kilograms): 81.600 BMI 31.9 General Appearance: Alert, Orientated x 3 Comments nonlabored Abdominal Brief: NOT FOUND: tender Laboratory Item Value Date Time Total Bilirubin 0.70 MG/DL 11/10/16 0408 Total Bilirubin 1.60 MG/DL H 11/09/16 1029 Trend Liver Function Tests Test 11/09/16 10:29 11/10/16 04:08 Alanine Aminotransferase (ALT/SGPT) 547U/L (9-52) 506U/L (9-52) Alkaline Phosphatase 192U/L (38-126) 195U/L (38-126) Aspartate Amino Transf (AST/SGOT) 690U/L (14-36) 378U/L (14-36) Laboratory Tests 11/09/16 10:29 11/10/16 04:08 Laboratory Tests 11/09/16 10:29 11/10/16 04:08 Assessment & Plan Problems: (1) Cholelithiasis with acute cholecystitis without obstruction Status: Acute Assessment Feeling better this am, bilirubin now normal at 0.7 and AST/ALT trending down. Proceed with robotic lap jasen today. Code Status Full Code Hospital Course Summary Disclaimer The visit summary below is not to be considered part of the above Progress Note. Hospital Course Summary 11-09 Admitted through the ED 26-year-old female with probable symptomatic cholelithiasis. PLAN When I spoke with the ER doctor earlier this morning/afternoon I had recommended that we go ahead and give the patient antibiotics empirically for possible cholecystitis. The patient was given Invanz 1 g intravenously. As a result of the above indications it was my recommendation that we should proceed with surgical intervention/robotic-assisted laparoscopic cholecystectomy. I did go ahead this evening and discuss with the patient, her and her parents who were in the room what a robotic-assisted laparoscopic cholecystectomy would entail with possible intraoperative cholangiogram. Discussed potential risks associated with this procedure which included but was not inclusive of bleeding, infection, potential conversion to open procedure, potential injury to adjacent structures, especially the common bile duct. Patient and family understood and wished to proceed as stated above. Will repeat her liver function tests and lab work tomorrow JESSIE Negron APRN November 10, 2016 08:01
--- NOTE | 2016-11-10 08:40 | NUR ---
YURI CM IN TO VISIT PATIENT, SHE IS A&O. IS IN ROOM. PATIENT PLANS TO DISCHARGE HOME, DENIES NEEDS "I HAVE LOTS OF FAMILY TO HELP ME." CM CONTACT INFORMATION GIVEN. JERICAE SCORE IS 2, NO FURTHER FOLLOW UP IS INDICATED. Addendum: 11/10/16 at 0841 by LONDON FELTON RN Amended: Links added.
[2016-11-10] MEDS ORDERED: ERTAPENEM 1 G in NS 100 ML IV SCH (09:00)
[2016-11-10] MEDS: NORMAL SALINE 1,000 ML IV SCH ×2 (09:17→17:51)
[2016-11-10] MEDS: ERTAPENEM 1 G in NORMAL SALINE 100 ML IV SCH (09:22)
--- NOTE | 2016-11-10 10:00 | NUR ---
PROGRESS NOTE PT ALERT AND ORIENTED X3. VITAL SIGNS STABLE, ON RA. PT RESTING IN BED, IN ROOM WITH PT. PT HAS NORMAL SALINE RUNNING AT 100CC/HR THROUGH A RIGHT HAND IV SITE. PT IS UP ADLIB IN ROOM. NO CONCERNS NOTED. REPORTED OFF TO FRANCESCA BRUMFIELD.
--- NOTE | 2016-11-10 10:34 | NUR ---
LEFT UNIT PT LEFT UNIT TO PACU WITH FRANCESCA CONNELL. PT LEFT VIA WHEELCHAIR, WITH IV FLUIDS INFUSING. PT'S FAMILY FOLLOWING TO PACU.
--- NOTE | 2016-11-10 11:12 | ANESPREOP ---
Anesthesia Record Date and Time DATE: 11/10/16 TIME: 11:09 Pre-Op Diagnosis cholycystyitis acute Proposed Surgical Procedure robot gb Allergies: Coded Allergies: No Known Allergies (Unverified , 11/09/16) Ht/Wt/BMI Height: 5 ' 3.00 " Weight: 81.600 kg BMI: 31.9 kg/m2 Vital Signs Date Time Temp Pulse Resp B/P Pulse Ox O2 Delivery O2 Flow Rate FiO2 11/10/16 10:46 97.8 58 20 123/73 97 Room Air Medications Inpatient Medications Current Medications Medications (Trade) Dose Ordered Sig/Gris Start Time Stop Time Status Last Admin Dose Admin Sodium Chloride (Normal Saline IV) 1,000 ml @ 100 mls/hr Q10H 11/09/16 12:27 11/10/16 09:17 100 MLS/HR Oxycodone/ Acetaminophen (Percocet 5/325) 1 tab Q6H PRN 11/09/16 12:30 Hydromorphone HCl (Dilaudid) 0.5 mg Q2H PRN 11/09/16 12:30 Ondansetron HCl (Zofran) 4 mg Q6H PRN 11/09/16 12:30 Promethazine HCl 12.5 mg 12.5 mg Q6H PRN 11/09/16 12:30 Ertapenem 1 g/ Sodium Chloride 100 ml @ 200 mls/hr DAILY 11/10/16 09:00 Cancel Ertapenem/Sodium Chloride (Invanz/NS) 100 ml @ 200 mls/hr DAILY 11/10/16 09:00 11/10/16 09:22 200 MLS/HR Acetaminophen (Acetaminophen) 500 Mg Tablet, 1,000 MG PO Q8H PRN for PAIN, ( Reported) Last Taken: on 11/09/16 0830 Ondansetron HCl (Zofran) 4 Mg Tablet, 4 MG PO Q6H PRN for NAUSEA &/OR VOMITING, (Reported) Last Taken: on 11/09/16 0830 [No Routine Meds] , (Reported) Currently on Beta Stan: No Medical/Surgical History Anesthesia PMH: Reports: Obesity, Denies: *Diabetes, *Hypertension, *RI, Anesthesia Reactions, Asthma, Blood Transfusion Reac, CHF, COPD, CVA/Stroke/TIA , Cancer, Glaucoma, Hepatitis, Malignant Hyperthermia, (RECENT DELIVERY), Rheumatic Fever, Seizures, Sleep Apnea Smoking Status: Never smoker Has pt. smoked today?: No Use Chewing Tobacco?: No Second Hand Exposure: No Substance Use Type: does not use Substance last used: unknown Alcohol Intake: rarely Last Drink: hours (ago) Past Surgical History Orthopedic Surgeries: No Abdominal Surgeries: No Genitourinary Surgeries: No Cardiac Surgeries: No Endocrine Surgeries: No Reproductive Surgeries: Yes - Neurological Surgeries: Ear Surgeries: Nose Surgeries: Throat Surgeries: Yes - TONSILLECTOMY Other Surgeries: Yes - Anesthesia Adverse Reactions: FOUND none Family Hx of Anesthesia Advers: none Hx of Motion Sickness: No Pertinent Findings Laboratory Tests 11/10/16 04:08 Test 11/09/16 10:29 Urine Test Negative (NEGATIVE) EKG Rhythm: Sinus Rhythm Physical Exam Respiratory: Bilat breath sounds equal, Lungs clear Cardiovascular: FOUND Regular rate, rhythm, FOUND No murmur Airway Assessment Mallampati Score: II TMD: 3 Fingerbreadths Neck Extension: Fair Overall Assessment: May Be Diff Mask Vent., May Be Diff Intubation ASA: 2 Plan Anesthesia Plan: GETA Discussion Discussed risks/options/alternatives of anesthesia and questions answered. Patient consents. Nursing pain assessment noted. Present: Spouse Attestation Statement Prior to the delivery of any anesthetic medication, I examined the patient, developed the plan, obtained the patient's consent and discussed the risk and benefits of the procedure with the patient/guardian. DEEPIKA CHURCH CRNA November 10, 2016 11:12
[2016-11-10] MEDS ORDERED: BUPIVACAINE 0.25%/EPI 1:200,000 30ml SDV ONE (11:34)
[2016-11-10] MEDS ORDERED: SALINE FLUSH 10ml SYRINGE ONE (11:34)
[2016-11-10] MEDS ORDERED: ROCURONIUM 50mg/5ml INJECTION IV ONE (12:02)
[2016-11-10] MEDS ORDERED: LIDOCAINE 2% (20mg/ml) 5ml PF SDV ONE (12:02)
[2016-11-10] MEDS ORDERED: PROPOFOL 200mg 20 ML IV ONE (12:02)
[2016-11-10] MEDS ORDERED: FENTANYL 250mcg/5ml INJECTION ONE (12:03)
[2016-11-10] MEDS ORDERED: IOHEXOL 300 MG/ML 50ml INJECTION ONE (12:41)
[2016-11-10] MEDS ORDERED: DEXAMETHASONE 4mg/ml - 1ml INJECTION ONE (12:45)
[2016-11-10] MEDS ORDERED: GLUCAGON 1 MG INJECTION ONE (13:28)
[2016-11-10] MEDS ORDERED: ONDANSETRON 4mg/2ml INJECTION ONE (13:51)
[2016-11-10] MEDS ORDERED: HYDROMORPHONE 2mg/ml INJECTION ONE (14:05)
--- NOTE | 2016-11-10 14:08 | DI ---
Indication: ITS.REASON: ACUTE CHOLECYSTITIS PROCEDURE: RF CHOLANGIOGRAM OPERATIVE: Comparison: None Findings: 6 fluoroscopic spot images are submitted from an intraoperative cholangiogram. Images demonstrate injection of contrast into the cystic duct with filling of the common duct and intrahepatic biliary tree. Several filling defects are noted within the mid to distal common duct which is slightly dilated. Contrast flows into the duodenum. Impression: Choledocholithiasis. Please refer to the dictated operative note for further details. Fluoroscopy time is 58 seconds. Fluoroscopy dose is 3110 mRad. .
--- NOTE | 2016-11-10 14:26 | GSPOSTPN ---
Procedure Procedure Date: November 10, 2016 Surgeon: Kaylynn Assisting Surgeon: Rivera Pinto Anesthesia: Local, GETA ASA: 2 Procedure Robotic assisted laparoscopic cholecystectomy with intraoperative cholangiogram and FireFly imaging. GS Diagnosis Postop Diagnosis Symptomatic cholelithiasis, choledocholithiasis. Complications Complications Estimated Blood Loss See Anesthesia Record. Vital Signs See Anesthesia and PACU record. JESSIE PINTO INPATIENT PHARMACIST November 10, 2016 14:26
[2016-11-10] MEDS ORDERED: ONDANSETRON ODT 4 MG TAB PO PRN (14:30)
[2016-11-10] MEDS: HYDROMORPHONE 2mg/ml INJECTION IV PRN ×2 (14:39→14:53)
--- NOTE | 2016-11-10 15:07 | NUR ---
ARRIVAL PATIENT BACK FROM OR TO ROOM 109 AT THIS TIME VIA CART AND PACU STAFF. PATIENT ABLE TO TRANSFER SELF OVER TO SURGICAL UNIT BED. DENIES N/V, CHEST PAIN, AND SOA. PAIN RATED AT A 4/10. DRESSING ASSESSED. NO S/S OF BLEEDING. WILL CONTINUE TO MONITOR.
--- NOTE | 2016-11-10 15:10 | ANESPO ---
Post-Op Note Date 11/10/16 Time: 15:10 Status Pt Participated in Evaluation: Pt participated in person Vital Signs Date Time Temp Pulse Resp B/P Pulse Ox O2 Delivery O2 Flow Rate FiO2 11/10/16 15:05 69 16 116/69 90 Room Air 11/10/16 14:25 6.00 11/10/16 14:24 98.1 Respiratory Function: Airway patent Cardiovascular Function: Regular pulse Mental Status: Alert/oriented Pain Level Intensity: 2 Hydration: IV infusing Complications during Recovery None apparent Follow-Up Instructions Instructions Per Surgeon YVETTE PORTILLO November 10, 2016 15:10
[2016-11-10] MEDS: OXYCODONE/APAP 5mg/325mg TABLET PO PRN ×2 (16:03→23:50)
--- NOTE | 2016-11-10 17:25 | NUR ---
END OF SHIFT REPORT PATIENT A/OX3. VITAL SIGNS STABLE. ROOM AIR. AFEBRILE. UP STANDBY ASSIST. LAP SITES X4 COVERED WITH DERMABOND AND ARE CLEAN, DRY, INTACT. PAIN HAS BEEN CONTROLLED WITH ONE PERCOCET 5 ADMINISTERED AT 1603. DENIES N/V, CHEST PAIN, AND SOA. PT HAS VOIDED SINCE ARRIVAL BACK FROM SURGERY. WILL CONTINUE TO MONITOR.
[2016-11-11] VITALS: BP 113/65; PULSE 78; RESP 14; TEMP 98.5; O2SAT 96
[2016-11-11 00:07] VITALS: RESP 14
[2016-11-11] MEDS: NORMAL SALINE 1,000 ML IV SCH (03:41)
[2016-11-11 04:00] VITALS: BP 123/72; PULSE 65; RESP 16; TEMP 98.4; O2SAT 100
--- NOTE | 2016-11-11 06:32 | NUR ---
PT did well overnight. PT up with assist as needed. PT took pain medication as needed and pain controlled. PT was NPO at midnight per report for transfer to [facility]. Per report the patient will leave with jama lutz and both of her IV's.
[2016-11-11] MEDS ORDERED: IBUP-1724 PO (06:57)
[2016-11-11] MEDS ORDERED: OXYC1TAB8 PO (06:57)
[2016-11-11] MEDS: ERTAPENEM 1 G in NORMAL SALINE 100 ML IV SCH (07:20)
--- NOTE | 2016-11-11 07:33 | PNSURG ---
Subjective DATE: 11/11/16 TIME: 07:25 Interval History She indicates the pain the brought her to the hospital is gone. She is having incisional pain, Percocet has been helpful. Denies nausea. She has been NPO since midnight, anticipating ERCP by Dr. Smith at [facility] today. Objective Vital Signs Date Time Temp Pulse Resp B/P Pulse Ox O2 Delivery O2 Flow Rate FiO2 11/11/16 04:00 98.4 65 16 123/72 100 Room Air 11/10/16 14:25 6.00 Height (Feet): 5 Height (Inches): 3.00 Weight (Kilograms): 81.600 BMI 31.9 General Appearance: Alert, Orientated x 3 Comments nonlabored Cardiac: FOUND: regular rate Abdominal Brief: FOUND: appropriately tender (at trocar sites), soft Incision: FOUND: Clean, Dry, Intact, open to air (DermaBond in tact), NOT FOUND : erythema Laboratory Item Value Date Time Total Bilirubin 1.60 MG/DL H 11/09/16 1029 Total Bilirubin 0.70 MG/DL 11/10/16 0408 Trend Liver Function Tests Test 11/09/16 10:29 11/10/16 04:08 Alanine Aminotransferase (ALT/SGPT) 547U/L (9-52) 506U/L (9-52) Alkaline Phosphatase 192U/L (38-126) 195U/L (38-126) Aspartate Amino Transf (AST/SGOT) 690U/L (14-36) 378U/L (14-36) Laboratory Tests 11/09/16 10:29 11/10/16 04:08 Laboratory Tests 11/09/16 10:29 11/10/16 04:08 Imaging cholangiogram Findings: 6 fluoroscopic spot images are submitted from an intraoperative cholangiogram. Images demonstrate injection of contrast into the cystic duct with filling of the common duct and intrahepatic biliary tree. Several filling defects are noted within the mid to distal common duct which is slightly dilated. Contrast flows into the duodenum. Impression: Choledocholithiasis. Please refer to the dictated operative note for further details. Procedure Procedure Date: November 10, 2016 Surgeon: Kaylynn Aguilar Robotic assisted laparoscopic cholecystectomy with intraoperative cholangiogram and FireFly imaging. GS Assessment & Plan Problems: (1) Cholelithiasis with acute cholecystitis without obstruction Status: Acute Assessment POD #1 post lap jasen with cholangiogram. Choledocholithiasis, will send to Dr. Smith for ERCP at [facility] today. Discharge instructions and expectations discussed, questions answered. Code Status Full Code Hospital Course Summary Disclaimer The visit summary below is not to be considered part of the above Progress Note. Hospital Course Summary 17 Admitted through the ED 26-year-old female with probable symptomatic cholelithiasis. PLAN When I spoke with the ER doctor earlier this morning/afternoon I had recommended that we go ahead and give the patient antibiotics empirically for possible cholecystitis. The patient was given Invanz 1 g intravenously. As a result of the above indications it was my recommendation that we should proceed with surgical intervention/robotic-assisted laparoscopic cholecystectomy. I did go ahead this evening and discuss with the patient, her and her parents who were in the room what a robotic-assisted laparoscopic cholecystectomy would entail with possible intraoperative cholangiogram. Discussed potential risks associated with this procedure which included but was not inclusive of bleeding, infection, potential conversion to open procedure, potential injury to adjacent structures, especially the common bile duct. Patient and family understood and wished to proceed as stated above. Will repeat her liver function tests and lab work tomorrow a.m. 5-18 Robotic assisted lap jasen with FireFly imagine as well as cholangiogram revealing retained common duct stone. 5-19 POD #1 post lap jasen with cholangiogram. Choledocholithiasis, will send to Dr. Smith for ERCP at [facility] today. Discharge instructions and expectations discussed, questions answered. JESSIE WOODSON HAND SPRING REPAIRER November 11, 2016 07:28
[2016-11-11 07:39] VITALS: BP 119/80; PULSE 68; RESP 14; TEMP 98.5; O2SAT 98
[2016-11-11 07:40] VITALS: BP 137/89; PULSE 65; PULSE 68; RESP 14; RESP 16; TEMP 98.1; O2SAT 100
--- NOTE | 2016-11-11 07:54 | OPNOTEF ---
DATE OF SERVICE 11/10/2016 SURGEON Geraldo Chaidez MD NEUROLOGY DIRECTOR Rivera Pinto APRN PREOPERATIVE DIAGNOSIS Symptomatic cholelithiasis/acute cholecystitis. POSTOPERATIVE DIAGNOSIS Symptomatic cholelithiasis/acute cholecystitis, choledocholithiasis. PROCEDURE Robotic assisted laparoscopic cholecystectomy with use of higher Firefly biliary imaging, intraoperative cholangiogram. ANESTHESIA General endotracheal EBL AND FLUIDS Please see chart. BRIEF HISTORY/INDICATIONS Mrs. Raymundo is a 26-year-old female whom I was asked to see yesterday through our emergency room facility as a result of her history and physical findings of abdominal pain in conjunction with radiographic findings revealing evidence for cholelithiasis. The patient's liver function tests were elevated. It was felt the patient was suffering from symptomatic cholelithiasis and possible choledocholithiasis. The patient was subsequently admitted to the hospital and begun on antibiotics, IV fluids, and it was recommended that she undergo surgical intervention/ cholecystectomy. For completeness please refer to notes included in the patient's chart. FINDINGS Upon laparoscopy the liver edge smooth without nodularities. The gallbladder was found to be somewhat thickened in nature and contained a component of pericholecystic edema. Biliary anatomy was well defined. Cholangiogram was obtained as a result of her increased liver function test. Unfortunately, the patient was found to have three filling defects within her common bile duct. The patient was given glucagon and these small stones were attempted to be irrigated out of the common bile duct. This was to no avail. The patient's cystic duct was of a small caliber and it was felt that it would be unlikely that a transcystic common bile duct exploration could therefore be accomplished. Given her young age and the fact that she had young twins at home, it was my recommendation that we not proceed with an open cholecystectomy and formal common bile duct exploration but finish the cholecystectomy and set the patient up tomorrow to undergo ERCP for clearing of her common bile ducts stones. Small bowel, omentum, colon, peritoneal surfaces which were visualized were within normal limits. DESCRIPTION OF PROCEDURE After informed consent was obtained, the patient was brought to the operative suite and placed on the table in supine fashion. The abdomen was then prepped and draped in sterile fashion. Formal time-out was then completed. Next 0.25% Marcaine with epinephrine was injected just beneath the level of the umbilicus. A 2 cm curved incision was then made through the area of analgesia. Dissection was then carried down through deep subcuticular tissues to underlying fascia. The fascia was then grasped with two Luis clamps retracted anteriorly. A 1 cm incision was then made between the two Luis clamps. A hemostat was then introduced into the fascial incision and gently spread. Peritoneum had to some extent away from the rectus muscle, most likely as a result of her recent . A hemostat was placed within the depth of the wound and the peritoneum was grasped and retracted upwardly into the fascial incision. Peritoneum was then opened with scissors under direct visualization. Next, a U stitch was then placed with 0 Vicryl through the fascial opening and subsequently through the peritoneal opening as well. A 12 mm port was then placed through the fascial and peritoneal opening. Pneumoperitoneum was established to a patient pressure of 15 mmHg utilizing carbon dioxide. Next, two additional 8-mm da Lala ports were then placed within the left upper quadrant and right lower quadrant. An additional 5 mm assist port was then placed through the right lateral abdominal wall. Each port site was preinjected with 0.25% Marcaine with epinephrine and again placed under visualization. The patient was placed in reverse Trendelenburg position and rotated towards her left. Gallbladder was then grasped and retracted in a cephalad fashion via my assistant cook along the right lateral abdominal wall. Robot was docked overlying the patient's right shoulder at 45-degree angle. Utilizing a fenestrated da Lala bipolar grasper, the infundibulum of the gallbladder was then grasped and retracted in a lateral and slightly caudad fashion to provide exposure of the triangle of Calot. Dissection was then began high upon the infundibulum of the gallbladder with use of electrocautery. At no point in time was electrocautery performed adjacent to a hollow viscus such as transverse colon, duodenum or stomach. It should be noted that upon connecting the fenestrated bipolar grasper to cautery, it began to cauterize immediately without touching the foot controls. Fortunately, the bipolar grasper was not touching any important structures other than the liver at this time. A new cord for the bipolar grasper was obtained which did result in resolution of this issue. Firefly biliary imaging was utilized and one could clearly see the cystic duct during the process of the dissection of triangle Calot. Critical view of safety had been obtained. The cystic artery was dissected high upon onto the midportion of the infundibulum of the gallbladder. Posterior aspect of the infundibulum was freed from the underlying liver bed fossa. Cystic duct was "skeletonized" at the infundibular junction. Next, a single Hem-o-Justino clip was placed upon the cystic artery adjacent to the infundibulum of the gallbladder. An additional Hem-o-Justino clip was then placed just proximally upon the cystic artery. Additional Hem-o-Justino clip was then placed upon the infundibular portion of the gallbladder just proximal to takeoff of the cystic duct. Cystic artery was then divided between the two Hem-o-Justino clips. A small ductotomy was then made upon the distal aspect of the infundibulum of the gallbladder adjacent to the cystic duct. Next, the robotic arm 1 was undocked. Cholangiocatheter was then placed under direct visualization into the ductotomy and subsequently into the cystic duct. Robot was then undocked at this time. A cholangiogram was obtained. Unfortunately, under fluoroscopy, one could see several filling defects within the midportion of the common bile duct. These did not appear to be air bubbles in nature and did not change as the patient was changed to different positions. The patient was given an amp of glucagon and several minutes were allowed to elapse. The biliary tree was then copiously irrigated with saline. A repeat cholangiogram was then obtained. Unfortunately, one could still see several filling defects within the common bile duct. I did evaluate the cystic duct structure and it was of a small caliber and I felt that it would be unlikely that a transcystic common bile duct exploration therefore could be accomplished. I therefore elected to proceed with completion of the cholecystectomy at this juncture in time and to send the patient to a tertiary care facility for ERCP for clearing of her choledocholithiasis. The robot was once again docked overlying the patient's right shoulder. Additional Hem-o-Justino clip was then placed upon the cystic duct just proximal to the ductotomy. The cystic duct was then divided between the two Hem-o-Justino clips. The gallbladder was then dissected off the liver bed fossa. The robot was then undocked. Gallbladder was then removed from the infraumbilical port site utilizing a laparoscopic retrieval bag. Irrigation was then performed and all irrigant was suctioned till clear. Gallbladder fossa was hemostatic in nature. Previously placed Hem-o-Justino clips were visualized and remained to be intact. During the process of dissection, one could see a vessel upon the surface of the gallbladder fossa. The gallbladder, however, was able to be dissected off of the gallbladder fossa without entering into this apparent vessel that one could see was pulsating in nature within the gallbladder fossa. To err on the cautious side, I did go ahead and release the pneumoperitoneum and allow few minutes to pass. Pneumoperitoneum was then reestablished and the gallbladder fossa was again inspected and found to be completely hemostatic with no evidence for bleeding. Again the Hem-o-Justino clips remained to be intact. All irrigant was suctioned till clear. Ports were removed under direct visualization. Previously placed U stitch at the infraumbilical port site was then secured imbricating the fascia. All skin incisions were then closed in a subcuticular fashion with 4-0 Monocryl. Dermabond was placed overlying the incisions. The patient tolerated the procedure without difficulty and has awakened from her general anesthetic and currently is in recovery room in stable condition. Additionally, it should be noted that Rivera Pinto APRN, was present throughout the entire case and played a pivotal role in providing assistance and exposure during the course of the procedure. CJ
--- NOTE | 2016-11-11 07:54 | OPNOTEF ---
Change the procedure to say Robotic assisted laparoscopic cholecystectomy with use of higher Firefly biliary imaging, intraoperative cholangiogram. MTDD
--- NOTE | 2016-11-11 08:00 | NUR ---
IVL LEAVING IN LEFT IVL TO BE USED DURING HOSPITALIZATION FOR ERCP IN [place].
[2016-11-11] MEDS: OXYCODONE/APAP 5mg/325mg TABLET PO PRN (08:24)
--- NOTE | 2016-11-11 08:25 | NUR ---
DISMISSAL WENT OVER WRITTEN DISMISSAL INSTRUCTIONS WITH PT INCLUDING NEW MEDS, F/U APPT, WOUND CARE, S/SX TO REPORT, ACTIVITY/RESTRICTIONS. BOTH PT AND PT'S VERBALIZED UNDERSTANDING. PT GIVEN PACKET TO PASS ON TO RECEIVING RN AFTER ADMIT IN [place] FOR ERCP. BOTH VERBALIZED UNDERSTANDING THEY ARE TO GO TO [place] NOW AND CHECK IN. PT'S PERSONAL BELONGINGS GATHERED. PT WALKED OUT OF [facility] ACCOMPANIED BY [facility] TO FRONT ENTRANCE FOR TRANSPORT TO [place] BY .
== END 2016-11-11 08:25 | disposition home or self-care (01) | DRG 419 ==
LOC: ED 08:54 → SCU 12:46 → EDHOLD 12:59 → SRG 13:34 → OBSVTOIN 11-10 14:21
PROVIDERS: ADMIT Surgery; ATTEND Surgery
PROC: 8E0W4CZ Robotic Assisted Procedure of Trunk Region, Percutaneous Endoscopic Approach (ICD-10-PCS; 2016-11-10)
PROC: BF101ZZ Fluoroscopy of Bile Ducts using Low Osmolar Contrast (ICD-10-PCS; 2016-11-10)
PROC: 0FT44ZZ Resection of Gallbladder, Percutaneous Endoscopic Approach (ICD-10-PCS; principal; 2016-11-10 12:49)
DX: K80.42 Calculus of bile duct with acute cholecystitis without obstruction (principal); Z68.33 Body mass index [BMI] 33.0-33.9, adult
CPT/HCPCS: 47563; 74300; S2900; 36415; 80053; 81001; 81025; 83690; 85025; 96361; 96365; 96375; 99218; J1610